=== PATIENT | female | born 1985 | race African-American/Black ===

== ENCOUNTER 2018-03-10 12:47 | Emergency (ER) | payer OTHER ==
[2018-03-10] MEDS ORDERED: ONDANSETRON HCL INJ/PF 4 MG/2 ML SDV IV ONE (13:14)
[2018-03-10] MEDS ORDERED: NORMAL SALINE 1000 ML 1,000 ML IV ONE (13:14)
--- NOTE | 2018-03-10 13:19 | ER Document Report ---
ED Medical Screen (RME) - General Chief Complaint: Nausea/Vomiting Stated Complaint: FAINTING/VOMITING Time Seen by Provider: 03/10/18 13:07 Mode of Arrival: Ambulatory Information source: Patient Notes: 33-year-old female presents emergency department with complaints of not feeling like herself. Patient states that she woke up this morning with a headache. She states that it is located in the forehead area. She denies any radiation of the pain. She describes the pain as a sharp/aching sensation. She states that it slightly better when she closes her eyes. She denies any exacerbating factors. Patient states that the pain has been gradually worsening throughout the day. Patient states that she does not usually get headaches. Patient states that she is also been having nausea, vomiting, lightheadedness today. Patient states that she has had multiple near syncopal episodes. She denies any trauma or head injury. Patient denies any fever, chills, neck pain. Patient states that her last menstrual period was on February 25. I have greeted and performed a rapid initial assessment of this patient. A comprehensive ED assessment and evaluation of the patient, analysis of test results and completion of the medical decision making process will be conducted by additional ED providers. PHYSICAL EXAMINATION: GENERAL: Well-appearing, well-nourished and in no acute distress. HEAD: Atraumatic, normocephalic. Frontal sinus tenderness to palpation. EYES: Pupils equal round extraocular movements intact, conjunctiva are normal. ENT: Nares patent NECK: Normal range of motion LUNGS: No respiratory distress Musculoskeletal: Normal range of motion NEUROLOGICAL: Normal speech, normal gait. PSYCH: Normal mood, normal affect. SKIN: Warm, Dry, normal turgor, no rashes or lesions noted. TRAVEL OUTSIDE OF THE [place] IN LAST 30 DAYS: No - Related Data Allergies/Adverse Reactions: No Known Allergies Allergy (Verified 03/10/18 12:50) Past Medical History - Social History Chew tobacco use (# tins/day): No Frequency of alcohol use: Occasional Drug Abuse: None Renal/ Medical History: Denies: Hx Peritoneal Dialysis Psychiatric Medical History: Reports: Hx Anxiety - Immunizations Hx Diphtheria, Pertussis, Tetanus Vaccination: Yes Physical Exam - Vital signs Vitals: Temp Pulse Resp BP Pulse Ox 98.3 F 82 18 149/97 H 100 03/10/18 12:52 03/10/18 12:52 03/10/18 12:52 03/10/18 12:52 03/10/18 12:52 Course - Vital Signs Vital signs: Temp Pulse Resp BP Pulse Ox 98.3 F 82 18 149/97 H 100 03/10/18 12:52 03/10/18 12:52 03/10/18 12:52 03/10/18 12:52 03/10/18 12:52
[2018-03-10 13:40] LABS: ABSOLUTE EOSINOPHILS # (AUTO) 0.1 10^3/uL (0.0-0.6); ABSOLUTE LYMPHOCYTES (AUTO) 1.9 10^3/uL (0.5-4.7); ABSOLUTE MONOCYTES (AUTO) 0.3 10^3/uL (0.1-1.4); BASOPHILS % (AUTO) 0.8 % (0-2); EOSINOPHILS % (AUTO) 2.1 % (0-6); HEMATOCRIT 40.3 % (36.0-47.0); HEMOGLOBIN 13.6 g/dL (12.0-15.5); MEAN CORPUSCULAR HEMOGLOBIN 28.2 pg (27.0-33.4); MEAN CORPUSCULAR HGB CONC 33.8 g/dL (32.0-36.0); MEAN CORPUSCULAR VOLUME 83 fl (80-97); MONOCYTES % (AUTO) 5.2 % (3-13); PLATELET COUNT 223 10^3/uL (150-450); RED BLOOD COUNT 4.83 10^6/uL (3.72-5.28); RED CELL DISTRIBUTION WIDTH 14.1 % (11.5-14.0); SEGMENTED NEUTROPHILS % (AUTO) 62.9 % (42-78); TOTAL CELLS COUNTED % (AUTO) 100 %; WHITE BLOOD COUNT 6.4 10^3/uL (4.0-10.5)
[2018-03-10 13:44] LABS: APPEARANCE,URINE SLIGHTLY-CLOUDY; BILIRUBIN,URINE NEGATIVE (NEGATIVE); COLOR,URINE YELLOW; GLUCOSE, URINE NEGATIVE (NEGATIVE); KETONES,URINE NEGATIVE (NEGATIVE); LEUKOCYTE ESTERASE,URINE TRACE (NEGATIVE); NITRITE,URINE NEGATIVE (NEGATIVE); PROTEIN,URINE NEGATIVE (NEGATIVE); URINE SPECIFIC GRAVITY 1.011; UROBILINOGEN,URINE NEGATIVE mg/dL (<2.0)
[2018-03-10 13:58] LABS: ALANINE AMINOTRANSFERASE 17 U/L (9-52); ALBUMIN 4.7 g/dL (3.5-5.0); ALKALINE PHOSPHATASE 86 U/L (38-126); ANION GAP 13 (5-19); ASPARTATE AMINO TRANSFERASE 23 U/L (14-36); BILIRUBIN,DIRECT 0.2 mg/dL (0.0-0.4); BILIRUBIN,TOTAL 0.8 mg/dL (0.2-1.3); BLOOD UREA NITROGEN 8 mg/dL (7-20); CALCIUM 10.1 mg/dL (8.4-10.2); CARBON DIOXIDE 27 mmol/L (22-30); CHLORIDE 103 mmol/L (98-107); GLUCOSE 93 mg/dL (75-110); POTASSIUM 4.4 mmol/L (3.6-5.0); SODIUM 143.2 mmol/L (137-145); TOTAL PROTEIN 7.9 g/dL (6.3-8.2)
[2018-03-10] MEDS ORDERED: DIPHENHYDRAMINE HCL 50 MG/ML VIAL IV ONE (14:46)
[2018-03-10] MEDS ORDERED: PROCHLORPERAZINE EDISYLATE INJ 10 MG/2 ML VIAL IV ONE (14:46)
--- NOTE | 2018-03-10 14:46 | ER Document Report ---
ED General - General Mode of Arrival: Ambulatory Information source: Patient TRAVEL OUTSIDE OF THE [place] IN LAST 30 DAYS: No <HENRIETTA ERNANDEZ - Last Filed: 03/10/18 16:22> <SHAR WILLIAMSON - Last Filed: 03/10/18 23:54> - General Chief Complaint: Nausea/Vomiting Stated Complaint: FAINTING/VOMITING Time Seen by Provider: 03/10/18 13:07 Notes: 33-year-old female who presents to the emergency department today with complaints of a headache with associated nausea and vomiting. Patient states she woke up this morning with this headache. Patient states she does not have a history of migraines and this headache is unusual for her. Patient states she initially began dry heaving and then vomited twice today. Patient states she received moderate relief with the nausea medicine given in triage. Patient states she felt near syncope today and felt hot but did not take her temperature. Patient also complains of diaphoresis. Patient denies any abdominal pain, diarrhea, or sick contacts. (HENRIETTA ERNANDEZ) - Related Data Allergies/Adverse Reactions: No Known Allergies Allergy (Verified 03/10/18 12:50) Past Medical History - General Information source: Patient - Social History Smoking Status: Never Smoker Cigarette use (# per day): No Chew tobacco use (# tins/day): No Frequency of alcohol use: Occasional Drug Abuse: None Lives with: Family Family History: Reviewed & Not Pertinent Patient has suicidal ideation: No Patient has homicidal ideation: No Renal/ Medical History: Denies: Hx Peritoneal Dialysis Psychiatric Medical History: Reports: Hx Anxiety Surgical Hx: Negative - Immunizations Hx Diphtheria, Pertussis, Tetanus Vaccination: Yes <HENRIETTA ERNANDEZ - Last Filed: 03/10/18 16:22> Review of Systems - Review of Systems Constitutional: See HPI, Diaphoresis, Fever - subjective EENT: No symptoms reported Cardiovascular: See HPI, Other - near-syncope Respiratory: No symptoms reported Gastrointestinal: See HPI, Nausea, Vomiting. denies: Diarrhea Genitourinary: No symptoms reported Female Genitourinary: No symptoms reported Musculoskeletal: No symptoms reported Skin: No symptoms reported Hematologic/Lymphatic: No symptoms reported Neurological/Psychological: See HPI, Headaches -: Yes All other systems reviewed and negative <HENRIETTA ERNANDEZ - Last Filed: 03/10/18 16:22> Physical Exam - Vital signs Interpretation: Normal - General General appearance: Appears well, Alert - HEENT Head: Normocephalic, Atraumatic Eyes: Normal Pupils: PERRL - Respiratory Respiratory status: No respiratory distress Chest status: Nontender Breath sounds: Normal Chest palpation: Normal - Cardiovascular Rhythm: Regular Heart sounds: Normal auscultation Murmur: No - Abdominal Inspection: Normal Distension: No distension Bowel sounds: Normal Tenderness: Nontender Organomegaly: No organomegaly - Back Back: Normal, Nontender - Extremities General upper extremity: Normal inspection, Nontender, Normal color, Normal ROM , Normal temperature General lower extremity: Normal inspection, Nontender, Normal color, Normal ROM , Normal temperature, Normal weight bearing. No: Christie's sign - Neurological Neuro grossly intact: Yes Cognition: Normal Orientation: AAOx4 [place] Coma Scale Eye Opening: Spontaneous Frances Coma Scale Verbal: Oriented [place] Coma Scale Motor: Obeys Commands [place] Coma Scale Total: 15 Speech: Normal Motor strength normal: LUE, RUE, LLE, RLE Sensory: Normal - Psychological Associated symptoms: Normal affect, Normal mood - Skin Skin Temperature: Warm Skin Moisture: Dry Skin Color: Normal <SHAR WILLIAMSON - Last Filed: 03/10/18 23:54> - Vital signs Vitals: Temp Pulse Resp BP Pulse Ox 98.3 F 82 18 149/97 H 100 03/10/18 12:52 03/10/18 12:52 03/10/18 12:52 03/10/18 12:52 03/10/18 12:52 Course - Laboratory Result Diagrams: 03/10/18 13:26 03/10/18 13:26 <HENRIETTA ERNANDEZ - Last Filed: 03/10/18 16:22> - Laboratory Result Diagrams: 03/10/18 13:26 03/10/18 13:26 - Diagnostic Test Radiology reviewed: Reports reviewed - EKG Interpretation by [facility] EKG shows normal: Sinus rhythm - NSR at 64 <SHAR WILLIAMSON - Last Filed: 03/10/18 23:54> - Re-evaluation Re-evalutation: 03/10/18 16:22 Patient feels much better and is ready to go home. Very grateful for care. ( HENRIETTA ERNANDEZ) Patient is a 33-year-old female who comes in complaining of a headache and vomiting on the left side of her head. Patient has had headaches before but usually not with associated vomiting. No trauma. Blood work within normal limits. Patient is not . Head CT and CT within normal limits. Patient has had complete resolution of symptoms after medication and fluids. Taking p.o. I would like to go home. Grateful for care. Stable for discharge. Follow-up with PMD. Understands and agrees with plan. (SHAR WILLIAMSON ) - Vital Signs Vital signs: Temp Pulse Resp BP Pulse Ox 98.0 F 80 16 140/75 H 100 03/10/18 16:36 03/10/18 16:36 03/10/18 16:36 03/10/18 16:36 03/10/18 16:36 - Laboratory Laboratory results interpreted by me: 03/10/18 03/10/18 13:26 13:26 RDW 14.1 H Ur Leukocyte Esterase TRACE H Discharge <HENRIETTA ERNANDEZ - Last Filed: 03/10/18 16:22> <SHAR WILLIAMSON - Last Filed: 03/10/18 23:54> - Discharge Clinical Impression: Headache Qualifiers: Headache type: unspecified Headache chronicity pattern: unspecified pattern Intractability: not intractable Qualified Code(s): R51 - Headache Vomiting Qualifiers: Vomiting type: unspecified Vomiting Intractability: non-intractable Nausea presence: with nausea Qualified Code(s): R11.2 - Nausea with vomiting, unspecified Condition: Stable Disposition: HOME, SELF-CARE Instructions: Headache ([facility]), Migraine Headache ([facility]) Prescriptions: Metoclopramide HCl [Reglan 10 mg Tablet] 1 - 2 tab PO ASDIR PRN #25 tablet PRN Reason: Prochlorperazine Maleate [Compazine 10 mg Tablet] 10 mg PO ASDIR PRN #10 tablet PRN Reason: Scribe Attestation: 03/10/18 23:54 I personally performed the services described in the documentation, reviewed and edited the documentation which was dictated to the scribe in my presence, and it accurately records my words and actions. (SHAR WILLIAMSON) Scribe Documentation - Scribe Written by Scribe:: Yamel Alfaro, 03/10/2018 1511 acting as scribe for :: Bonnie <HENRIETTA ERNANDEZ - Last Filed: 03/10/18 16:22>
--- NOTE | 2018-03-10 15:33 | RADIOLOGY REPORT (SQ) ---
EXAM DESCRIPTION: CT HEAD WITHOUT COMPLETED DATE/TIME: 03/10/2018 3:23 pm REASON FOR STUDY: headache, L side, N/V COMPARISON: None. TECHNIQUE: Axial images acquired through the brain without intravenous contrast. Images reviewed wi th bone, brain and subdural windows. Additional sagittal and coronal reconstructions were generated. Images stored on PACS. All CT scanners at this facility use dose modulation, iterative reconstruction, and/or weight based d osing when appropriate to reduce radiation dose to as low as reasonably achievable (ALARA). [facility]: Dose Right [facility]: CareDose [facility]: Dose Right [facility]: Teradose 4D [facility]: [place] RADIATION DOSE: CT Rad equipment meets quality standard of care and radiation dose reduction techniq ues were employed. CTDIvol: 53.2 mGy. DLP: 1097 mGy-cm. mGy. LIMITATIONS: None. FINDINGS: VENTRICLES: Normal size and contour. CEREBRUM: No masses. No hemorrhage. No midline shift. No evidence for acute infarction. Normal gra y/white matter differentiation. No areas of low density in the white matter. CEREBELLUM: No masses. No hemorrhage. No alteration of density. No evidence for acute infarction. EXTRAAXIAL SPACES: No fluid collections. No masses. ORBITS AND GLOBE: No intra- or extraconal masses. Normal contour of globe without masses. CALVARIUM: No fracture. PARANASAL SINUSES: No fluid or mucosal thickening. SOFT TISSUES: No mass or hematoma. OTHER: No other significant finding. IMPRESSION: NORMAL BRAIN CT WITHOUT CONTRAST. EVIDENCE OF ACUTE STROKE: NO. COMMENT: Quality ID # [id number]: Final reports with documentation of one or more dose reduction techniques (e.g., Automated exposure control, adjustment of the mA and/or kV according to patient size, use of iterative reconstruction technique) TECHNICAL DOCUMENTATION: JOB ID: [id number] [employer]- All Rights Reserved Reading location - IP/workstation name: [email or web address]
--- NOTE | 2018-03-10 15:35 | RADIOLOGY REPORT (SQ) ---
EXAM DESCRIPTION: CTA HEAD COMPLETED DATE/TIME: 03/10/2018 3:23 pm REASON FOR STUDY: headache, L side, N/V COMPARISON: None. TECHNIQUE: Post IV contrast scanning, thin section axial imaging through the brain to evaluate the a rterial structures. Source and MIP images are saved and reviewed on PACS. Advanced 3D imaging as volume-rendering, MIPs, SSD performed? yes All CT scanners at this facility use dose modulation, iterative reconstruction, and/or weight based d osing when appropriate to reduce radiation dose to as low as reasonably achievable (ALARA). [facility]: Dose Right [facility]: CareDose [facility]: Dose Right [facility]: Teradose 4D [facility]: [employer] CONTRAST TYPE AND DOSE: contrast/concentration: Isovue 350.00 mg/ml; Total Contrast Delivered: 70.0 ml; Total Saline Delivered: 75.0 ml RENAL FUNCTION: None required. The patient is less than 50 years old. LIMITATIONS: None. FINDINGS: BLACKFEET OF LABOY: The anterior, middle, posterior cerebral arteries are all patent. No ev idence of aneurysm or focal stenosis. POSTERIOR CIRCULATION: The distal vertebral arteries are patent as is the basilar artery. No aneurysm . BRAIN: No abnormal enhancement. BONES: Intact as visualized. SINUSES: No fluid or mucosal thickening. OTHER: No other significant finding. IMPRESSION: NO CTA EVIDENCE OF STENOSIS OR ANEURYSM OF THE BLACKFEET OF LABOY. TECHNICAL DOCUMENTATION: JOB ID: [id number] Quality ID # [id number]: Final reports with documentation of one or more dose reduction techniques (e.g., Au tomated exposure control, adjustment of the mA and/or kV according to patient size, use of iterative reconstruction technique) 2010 [employer]- All Rights Reserved Reading location - IP/workstation name: [email or web address]
[2018-03-10] MEDS ORDERED: ONDANSETRON ODT 4 MG TAB (6 TAB/ER DISP) PO PRN (16:16)
[2018-03-10 16:42] VITALS: BP 140/75
--- NOTE | 2018-03-10 20:45 | EKG REPORT ---
SEVERITY:- NORMAL ECG - SINUS RHYTHM : Confirmed by: Rosalba Villa MD 10-Mar-2018 20:44:18
== END 2018-03-10 16:42 | disposition home or self-care (01) ==
LOC: ER 12:47
DX: R51 Headache (principal); R11.2 Nausea with vomiting, unspecified; R61 Generalized hyperhidrosis; R50.9 Fever, unspecified
CPT/HCPCS: 93005; 99284; 96361; 96374; 96375; 36415; 85025; 81025; 80053; 81001; 70450; 70496; 93010; J1200; J0780; J2405; J7030